=== PATIENT | male | born 1985 | race Asian ===

== ENCOUNTER 2017-04-01 16:24 | Outpatient (CLI) | payer OTHER | END 2017-04-01 16:27 | disposition short-term general hospital (02) | LOC: AMB 16:24 | DX: G40.89 Other seizures (principal); S01.81XA Laceration without foreign body of other part of head, initial encounter; R41.82 Altered mental status, unspecified | CPT/HCPCS: A0425; A0427 ==

== ENCOUNTER 2017-04-01 16:32 | Emergency (ER) | payer OTHER ==
[~2017-04-01] VITALS: Ht 185.4 cm; Wt 68.0 kg
[2017-04-01 17:06] LABS: PLATELET COUNT 245 K/uL (142-355)
[2017-04-01 18:35] VITALS: BP 121/72; TEMP 98.5
== END 2017-04-01 18:35 ==
LOC: ED 16:32
DX: R56.9 Unspecified convulsions (principal); S00.03XA Contusion of scalp, initial encounter; S01.81XA Laceration without foreign body of other part of head, initial encounter; S00.511A Abrasion of lip, initial encounter
CPT/HCPCS: 36415; 80307; 85027; 96374; 99284; G0479; J1885

== ENCOUNTER 2019-01-27 11:21 | Outpatient (CLI) | payer OTHER | END 2019-01-27 11:27 | disposition short-term general hospital (02) | LOC: AMB 11:21 | DX: R56.9 Unspecified convulsions (principal) | CPT/HCPCS: A0425; A0429 ==

== ENCOUNTER 2019-01-27 11:36 | Emergency (ER) | payer OTHER ==
[~2019-01-27] VITALS: Ht 185.4 cm; Wt 79.4 kg
[2019-01-27 11:37] VITALS: BP 145/88; TEMP 97.8
== END 2019-01-27 12:00 | disposition home or self-care (01) ==
LOC: ED 11:36
DX: R56.9 Unspecified convulsions (principal)
CPT/HCPCS: 99282